=== PATIENT | female | born 1960 | race Caucasian/White ===

== ENCOUNTER 2024-09-05 18:54 | Emergency (ER) | payer SELFPAY ==
[2024-09-05 19:00] VITALS: BP 164/77; PULSE 59; RESP 18; TEMP 36.5; O2SAT 97; BMI 24.7
[2024-09-05 19:34] VITALS: BP 132/63; PULSE 84; RESP 18; O2SAT 97
--- NOTE | 2024-09-06 00:54 | ED.ABDPAIN ---
HPI - Abdominal Pain General Chief Complaint: Abdominal Pain Stated Complaint: abd px Source: patient Mode of arrival: Family Vehicle History of Present Illness HPI narrative: Patient left without seeing provider Related Data Allergies Allergy/AdvReac Type Severity Reaction Status Date / Time No Known Drug Allergies Allergy Verified 09/05/24 19:33 Patient History Social History Smoking Status: Current every day smoker Smoking Status: Current every day smoker tobacco type: cigarettes Exam Initial Vital Signs Initial Vital Signs: Vital Signs Temperature 97.7 F 09/05/24 19:00 Pulse Rate 59 L 09/05/24 19:00 Respiratory Rate 18 09/05/24 19:00 Blood Pressure 164/77 H 09/05/24 19:00 Pulse Oximetry 97 09/05/24 19:00 Oxygen Delivery Method Room Air 09/05/24 19:00 Course Vital Signs Vital signs: Vital Signs - 8 hr 09/05/24 19:00 09/05/24 19:34 Temperature 97.7 F Pulse Rate 59 L 84 Respiratory Rate 18 18 Blood Pressure 164/77 H 132/63 Pulse Oximetry 97 97 Oxygen Delivery Method Room Air Room Air Discharge Plan Departure Patient Disposition: Left Without Being Seen Clinical Impression: Patient left without being seen
== END 2024-09-05 19:40 | disposition left against medical advice (07) ==
PROVIDERS: Emergency Provider Emergency Medicine
DX: R10.13 Epigastric pain (principal)
CPT/HCPCS: 99281